=== PATIENT | female | born 1950 | race Caucasian/White ===

== ENCOUNTER 2017-12-25 09:30 | Day surgery (SDC) | payer MEDICARE, BC ==
[2017-12-25] MEDS ORDERED: FENTAnyl 50 MCG/ML VIAL (10:09)
[2017-12-25] MEDS ORDERED: PROPOFOL 20 ML (10:09)
[2017-12-25] MEDS ORDERED: MIDAZOLAM 1 MG/ML 2 ML INJ (10:09)
== END 2017-12-25 14:34 | disposition home or self-care (01) ==
LOC: GIL 09:30
DX: Z12.11 Encounter for screening for malignant neoplasm of colon (principal); K64.9 Unspecified hemorrhoids; E03.9 Hypothyroidism, unspecified
CPT/HCPCS: G0121